=== PATIENT | male | born 1985 | race Caucasian/White ===

== ENCOUNTER 2023-04-09 11:11 | Emergency (ER) | payer SELFPAY ==
[~2023-04-09] VITALS: Ht 175.3 cm; Wt 77.1 kg
[2023-04-09 11:43] LABS: HEMATOCRIT 43.3 % (36.7-47.1); MEAN CORPUSCULAR HEMOGLOBIN 31.1 uug (23.8-33.4); MEAN CORPUSCULAR VOLUME 88.2 fL (73.0-96.2); PLATELET COUNT (AUTO) 186 K/uL (152-348)
--- NOTE | 2023-04-09 11:49 | NUR ---
Patient is resting comfortably on gurney while using his personal electronic device, NAD. Patient said that he feels better.
[2023-04-09 11:51] LABS: CARBON DIOXIDE 31 mmol/L (21-32); CHLORIDE 101 mmol/L (98-107); CREATININE 1.1 mg/dL (0.6-1.3); GLUCOSE 116 mg/dL (74-106); UREA NITROGEN, BLOOD 18 mg/dL (7-18)
[2023-04-09] MEDS ORDERED: LISI2.5T14 PO (12:55)
--- NOTE | 2023-04-09 13:01 | NUR ---
Patient discharged to home by Dr Odell in stable condition with brisk steady gait. Written and verbal after care instructions given. Patient verbalized understanding and compliance of instructions. Stressed follow up with primary doctor and credit card specialist or return to ER for worsening s/s.
== END 2023-04-09 13:03 | disposition home or self-care (01) ==
LOC: ER 11:11
DX: R00.2 Palpitations (principal); F14.10 Cocaine abuse, uncomplicated; R07.89 Other chest pain; Z88.2 Allergy status to sulfonamides; Z79.899 Other long term (current) drug therapy
CPT/HCPCS: 36415; 71045; 84484; 85025; 93005; A4663

== ENCOUNTER 2023-07-09 05:00 | Emergency (ER) | payer OTHER ==
[~2023-07-09] VITALS: Ht 170.2 cm; Wt 77.1 kg
[~2023-07-09 05:00] MED LIST: LISI2.5T14 PO
[2023-07-09] MEDS ORDERED: IBUPROFEN 800 MG TABLET ONE (05:30)
[2023-07-09] MEDS ORDERED: AMOXICILLIN-CLAVUL 875-125MG TABLET PO ONE (05:30)
[2023-07-09] MEDS ORDERED: AMOXICILLIN-CLAVUL 875-125MG TABLET ONE (05:30)
[2023-07-09] MEDS ORDERED: IBUPROFEN 800 MG TABLET PO ONE (05:30)
[2023-07-09] MEDS ORDERED: IBUP-1955 PO (05:41)
[2023-07-09] MEDS ORDERED: AMOX-430 PO (05:41)
[2023-07-09] MEDS ORDERED: LISI2.5T14 PO (05:41)
[2023-07-09] MEDS ORDERED: CHLORHEXIDINE GLUCONATE 15 ML MOUTHWASH MM SCH (05:45)
[2023-07-09 05:46] VITALS: BP 148/90; O2SAT 97
== END 2023-07-09 05:46 | disposition home or self-care (01) ==
LOC: ER 05:09
DX: K04.7 Periapical abscess without sinus (principal); I10 Essential (primary) hypertension; Z88.2 Allergy status to sulfonamides; Z79.899 Other long term (current) drug therapy
CPT/HCPCS: A4663